=== PATIENT | male | born 1995 | race Caucasian/White ===

== ENCOUNTER 2016-08-15 01:45 | Emergency (ER) | payer BC ==
[~2016-08-15] VITALS: Ht 177.8 cm; Wt 72.6 kg
[~2016-08-15 01:45] MED LIST: DICY10CA53 PO; PROAIR HFA8.5 GM INH
[2016-08-15 02:37] VITALS: BP 110/72
[2016-08-15] MEDS ORDERED: IV NORMAL SALINE 1000ML BAG 1,000 ML IV ONE (03:00)
[2016-08-15] MEDS ORDERED: HYDROmorphone 2 MG/ML VIAL IV ONE (03:00)
[2016-08-15] MEDS ORDERED: ONDANSETRON PF 4 MG/2 ML VIAL. IV ONE (03:00)
[2016-08-15 03:11] LABS: BASO # 0.1 x10^3/uL (0.0-0.2); BASO % 0 % (0-3); EOS % 2 % (0-3); HEMATOCRIT 41.7 % (39.0-53.0); HEMOGLOBIN 14.3 g/dL (13.0-17.5); LYMPH # 2.1 x10^3/uL (1.0-4.8); LYMPH % 17 % (24-48); MEAN CORPUSCULAR HEMOGLOBIN 30 pg (25-35); MEAN CORPUSCULAR HGB CONC 34 g/dL (31-37); MEAN CORPUSCULAR VOLUME 86 fL (79-100); MONO % 8 % (0-9); NEUT % 73 % (31-73); PLATELET COUNT 307 x10^3/uL (140-400); RED BLOOD COUNT 4.84 x10^6/uL (4.30-5.70); RED CELL DISTRIBUTION WIDTH 13.5 % (11.5-14.5); WHITE BLOOD COUNT 11.9 x10^3/uL (4.0-11.0)
[2016-08-15 03:22] LABS: CALCIUM 9.6 mg/dL (8.5-10.1); CREATININE 0.9 mg/dL (0.7-1.3); GFR 108.7; POTASSIUM 3.8 mmol/L (3.5-5.1)
[2016-08-15 03:25] LABS: BILIRUBIN,URINE NEGATIVE (NEG); GLUCOSE,URINE NEGATIVE (NEG); NITRITE,URINE NEGATIVE (NEG); PH,URINE 8.5; PROTEIN,URINE 30 mg/dL (NEG-TRACE); UROBILINOGEN,URINE 0.2 mg/dL (0.2 mg/dL)
[2016-08-15 03:28] LABS: ALBUMIN 3.9 g/dL (3.4-5.0); ALBUMIN/GLOBULIN RATIO 1.1 (1.0-1.7); TOTAL BILIRUBIN 0.2 mg/dL (0.2-1.0); TOTAL PROTEIN 7.5 g/dL (6.4-8.2)
[2016-08-15 03:33] LABS: BACTERIA,URINE 0 /HPF (0-FEW); RBC,URINE OCC /HPF (0-2); WBC,URINE OCC /HPF (0-4)
[2016-08-15 03:34] LABS: SQUAMOUS EPITHELIAL CELL,UR OCC /LPF
--- NOTE | 2016-08-15 03:37 | RAD ---
INDICATION: Headache COMPARISON: None TECHNIQUE: Axial CT images obtained through the head. One or more of the following individualized dose reduction techniques were utilized for this examination: 1. Automated exposure control; 2. Adjustment of the mA and/or kV according to patient size; 3. Use of iterative reconstruction technique. FINDINGS: No midline shift. Ventricles and sulci within normal limits in size for the patients age. Basilar cistern patent. No gross hemorrhage or intracranial mass. No displaced skull fracture. IMPRESSION: No acute intracranial hemorrhage. Partial opacification of partially visualized right maxillary sinus. Could be from sinus congestion or sinusitis. Electronically signed by: Jb Donald (August 15, 2016 03:35:27)
[2016-08-15] MEDS ORDERED: IBUP-1007 PO (03:55)
[2016-08-15] MEDS ORDERED: ONDA4TAB10 SL (03:55)
--- NOTE | 2016-08-15 03:55 | PHYS DOC ---
Past Medical History Past Medical History: Asthma Past Surgical History: Appendectomy Alcohol Use: Rarely Drug Use: Marijuana Adult General Chief Complaint Chief Complaint: HEADACHE HPI HPI Patient is a 20 year old gentleman who presents here today secondary to feel sick for approximately 7 days now. Mother reports that he's been vomiting and having diarrhea for approximately one week. Patient reports she's had 2 episodes of vomiting over the last couple days. Patient reports she's had 2 episodes diarrhea over the last 24 hours. Patient reports that he's had a headache today. Patient reports that woke him up and it was a severe headache. Patient reports that he's had headaches in the past of woke him up however this one seems to be slightly worse. Patient denies any fevers shakes chills. A shunt reports some abdominal discomfort in his left lower quadrant. Patient denies any melena or bright red blood per rectum. Patient does have some dysuria no frequency or urgency. Patient reports his last by mouth intake was approximately 8 PM. Patient has a history of asthma. No history of hypertension diabetes liver or kidney problems. Patient has had his appendix taken out. Patient does not smoke patient will do drugs except for marijuana. Patient reports he does not drink alcohol. Patient denies any chest pain or shortness of breath. Patient denies any double vision or blurred vision. Patient denies any weakness in his upper or lower 70s. Patient reports that the headache started today. Patient reports it's not positional. Patient's physical exam was remarkable for some mild tenderness to palpation his left lower quadrant. Patient had no rebound or guarding. Patient has normal active bowel sounds. Patient does not present with any signs or symptoms of be consistent with an acute surgical abdomen. Patient's HEENT exam was unremarkable. Patient does not have any papilledema. Patient's pupils are equally round and reactive to light. Extraocular motions were intact. Patient's oropharynx was normal. Patient's neck was supple. There is no nuchal rigidity. There is no Kernig's or Brudzinski sign. Patient does not present with any signs or symptoms of be concerning for meningitis. Patient's heart was regular rate and rhythm. Lungs were clear. No wheezing rales or rhonchi. Patient's ER workup was significant for normal labs. Patient had normal CBC and chemistry. Patient's anion gap within normal limits. Patient had a normal UA with a normal specific gravity. Patient's bicarbonate within normal limits. Patient had a CT scan of his head which did not reveal any acute pathology. Patient was given pain meds, IV fluids and antiemetics in the ER and feels much improved. Patient is resting comfortably and says he feels 100% better. Patient still feels somewhat ill but the family reports feels a lot better than when he first got here. I discussed the results with the patient and the mother and they feel very satisfied and relieved with all the lab tests that are normal and a normal CT scan of the head. They feel very comfortable with the plan to be discharged home with close follow-up with her primary care physician. They were instructed to return to the ER if they have any further problems or concerns. Assessment and plan #1 headache etiology unclear. Possibly likely secondary to allergic sinusitis. This was discussed with the family. I do not think antibiotics to be worn to this time with a normal WBC count and no fevers at home. Patient be treated with Benadryl and [id number] Claritin. Patient feels very comfortable with this plan. Patient's CT scan of the head without any acute pathology. The family was concerned about a possible tumor. There is no evidence of any tumors/ increased intracranial pressure that would be causing patient have emesis. #2 nausea vomiting diarrhea for one week. Etiology is unclear however patient is clinically hemodynamically stable. Patient does not exhibit any signs or symptoms of dehydration at this time by his labs. Patient's bicarbonate and anion gap are within normal limits. Patient was given a liter of normal saline here as well as antiemetics. I will send on the patient with Nitin to assist him with his nausea and will encourage a bland diet for the next 24-48 hours. THE been answered. Patient is clinically hemodynamically stable for discharge. Patient's evaluation reveals no necessity for further inpatient her ER workup for his symptoms. Patient will need further outpatient evaluation by his primary care physician. Review of Systems Review of Systems Constitutional: Denies fever or chills [] Eyes: Denies change in visual acuity, redness, or eye pain [] HENT: Denies nasal congestion or sore throat [] All other review systems are negative except as documented in the history of present illness portion. Current Medications Current Medications Current Medications Medications (Trade) Dose Ordered Sig/Juan Start Time Stop Time Status Last Admin Dose Admin Hydromorphone HCl (Dilaudid) 0.5 mg 1X ONCE 08/15/16 03:00 08/15/16 03:01 DC 08/15/16 03:00 0.5 MG Ondansetron HCl (Zofran) 4 mg 1X ONCE 08/15/16 03:00 08/15/16 03:01 DC 08/15/16 03:00 4 MG Sodium Chloride 1,000 ml @ 1,000 mls/hr 1X ONCE 08/15/16 03:00 08/15/16 03:59 08/15/16 03:00 1,000 MLS/HR Allergies Allergies Allergies Coded Allergies Type Severity Reaction Last Updated Verified No Known Drug Allergies 10/05/14 No Physical Exam Physical Exam Constitutional: Well developed, well nourished, no acute distress, non-toxic appearance. [] HENT: Normocephalic, atraumatic, bilateral external ears normal, oropharynx moist, no oral exudates, nose normal. [] Eyes: PERRLA, EOMI, conjunctiva normal, no discharge. [] Neck: Normal range of motion, no tenderness, supple, no stridor. [] Cardiovascular:Heart rate regular rhythm, no murmur [] Lungs & Thorax: Bilateral breath sounds clear to auscultation [] Abdomen: Bowel sounds normal, soft, mild left lower quadrant tenderness to palpation. No rebound or guarding., no masses, no pulsatile masses. [] Skin: Warm, dry, no erythema, no rash. [] Back: No tenderness, no CVA tenderness. [] Extremities: No tenderness, no cyanosis, no clubbing, ROM intact, no edema. [] Neurologic: Alert and oriented X 3, normal motor function, normal sensory function, no focal deficits noted. [] Psychologic: Affect normal, judgement normal, mood normal. [] Current Patient Data Vital Signs Vital Signs Date Time Temp Pulse Resp B/P (MAP) Pulse Ox O2 Delivery O2 Flow Rate FiO2 08/15/16 02:37 98.3 70 24 99 Room Air 98.3 Lab Values Laboratory Tests Test 08/15/16 03:04 08/15/16 03:18 White Blood Count 11.9 x10^3/uL (4.0-11.0) H Red Blood Count 4.84 x10^6/uL (4.30-5.70) Hemoglobin 14.3 g/dL (13.0-17.5) Hematocrit 41.7 % (39.0-53.0) Mean Corpuscular Volume 86 fL (79-100) Mean Corpuscular Hemoglobin 30 pg (25-35) Mean Corpuscular Hemoglobin Concent 34 g/dL (31-37) Red Cell Distribution Width 13.5 % (11.5-14.5) Platelet Count 307 x10^3/uL (140-400) Neutrophils (%) (Auto) 73 % (31-73) Lymphocytes (%) (Auto) 17 % (24-48) L Monocytes (%) (Auto) 8 % (0-9) Eosinophils (%) (Auto) 2 % (0-3) Basophils (%) (Auto) 0 % (0-3) Neutrophils # (Auto) 8.6 x10^3uL (1.8-7.7) H Lymphocytes # (Auto) 2.1 x10^3/uL (1.0-4.8) Monocytes # (Auto) 0.9 x10^3/uL (0.0-1.1) Eosinophils # (Auto) 0.3 x10^3/uL (0.0-0.7) Basophils # (Auto) 0.1 x10^3/uL (0.0-0.2) Sodium Level 140 mmol/L (136-145) Potassium Level 3.8 mmol/L (3.5-5.1) Chloride Level 104 mmol/L (98-107) Carbon Dioxide Level 28 mmol/L (21-32) Anion Gap 8 (6-14) Blood Urea Nitrogen 12 mg/dL (8-26) Creatinine 0.9 mg/dL (0.7-1.3) Estimated GFR (Cockcroft-Gault) 108.7 BUN/Creatinine Ratio 13 (6-20) Glucose Level 95 mg/dL (70-99) Calcium Level 9.6 mg/dL (8.5-10.1) Total Bilirubin 0.2 mg/dL (0.2-1.0) Aspartate Amino Transferase (AST) 16 U/L (15-37) Alanine Aminotransferase (ALT) 18 U/L (16-63) Alkaline Phosphatase 122 U/L (46-116) H Total Protein 7.5 g/dL (6.4-8.2) Albumin 3.9 g/dL (3.4-5.0) Albumin/Globulin Ratio 1.1 (1.0-1.7) Lipase 68 U/L (73-393) L Urine Collection Type Unknown Urine Color Yellow Urine Clarity Clear Urine pH 8.5 Urine Specific [place] 1.015 Urine Protein 30 mg/dL (NEG-TRACE) Urine Glucose (UA) Negative mg/dL (NEG) Urine Ketones (Stick) Negative mg/dL (NEG) Urine Blood Negative (NEG) Urine Nitrite Negative (NEG) Urine Bilirubin Negative (NEG) Urine Urobilinogen Dipstick 0.2 mg/dL (0.2 mg/dL) Urine Leukocyte Esterase Negative (NEG) Urine RBC Occ /HPF (0-2) Urine WBC Occ /HPF (0-4) Urine Squamous Epithelial Cells Occ /LPF Urine Amorphous Sediment Present /HPF Urine Bacteria 0 /HPF (0-FEW) Urine Mucus Slight /LPF Laboratory Tests 08/15/16 03:04 Laboratory Tests 08/15/16 03:04 EKG EKG [] Radiology/Procedures Radiology/Procedures [] Course & Med Decision Making Course & Med Decision Making Pertinent Labs and Imaging studies reviewed. (See chart for details) [] Dragon Disclaimer Dragon Disclaimer This electronic medical record was generated, in whole or in part, using a voice recognition dictation system. Departure Departure Impression: Primary Impression: Vomiting Additional Impressions: Nausea vomiting and diarrhea Abdominal pain Headache Dehydration Allergic sinusitis Disposition: 01 HOME, SELF-CARE Condition: IMPROVED Referrals: NO PCP (PCP) Patient Instructions: Chronic Diarrhea, General Headache Without Cause, Headache and Allergies, Nausea and Vomiting Scripts Ondansetron (ZOFRAN ODT) 4 Mg Tab.rapdis 1 TAB SL Q6HRS Y for NAUSEA, #12 TAB Prov: DESIRAE FINLEY MD 08/15/16 Ibuprofen (IBUPROFEN) 600 Mg Tablet 600 MG PO PRN Q6HRS Y for PAIN, #20 TAB Prov: DESIRAE FINLEY MD 08/15/16 Problem Qualifiers Primary Impression: Vomiting Vomiting type: unspecified Vomiting Intractability: non-intractable Nausea presence: with nausea Qualified Codes: R11.2 - Nausea with vomiting, unspecified Additional Impressions: Abdominal pain Abdominal location: left lower quadrant Qualified Codes: R10.32 - Left lower quadrant pain Headache Headache type: unspecified Headache chronicity pattern: unspecified pattern Intractability: not intractable Qualified Codes: R51 - Headache DESIRAE FINLEY MD August 15, 2016 03:55
== END 2016-08-15 04:13 | disposition home or self-care (01) ==
LOC: ER 01:45
DX: J30.9 Allergic rhinitis, unspecified (principal); R51 Headache; E86.0 Dehydration; R11.2 Nausea with vomiting, unspecified; R19.7 Diarrhea, unspecified; R10.32 Left lower quadrant pain; Z90.49 Acquired absence of other specified parts of digestive tract; J45.909 Unspecified asthma, uncomplicated; F12.10 Cannabis abuse, uncomplicated
CPT/HCPCS: 36415; 70450; 80053; 81001; 83690; 85027; 96361; 96374; 96375; 99285; J1170; J2405; J7030